=== PATIENT | male | born 1990 | race Caucasian/White ===

== ENCOUNTER 2016-12-15 10:41 | Inpatient (IN) | payer SELFPAY ==
[~2016-12-15] VITALS: Ht 180.3 cm; Wt 98.7 kg
--- NOTE | 2016-12-15 10:55 | NUR ---
PT BIB [facility] WITH C/O GENERALIZED WEAKNESS AND NAUSEA R/T RECENT ETOH. PT IS AWAKE ACTING APPROPRIOATELY, FOLLOWING COMMANDS AND ANSWERING QUESTIONS. RESP EVEN AND UNLABORED, RA. NO C/O PAIN, SOB, CHEST PAIN, ABD PAIN. PT REPORTS NAUSEA HAS RESOLVED. PT NOTED TO HAVE ZAKI RED RASH UNDER AXILA, WITH MILD ITCHING. PT ALSO NOTED TO HAVE JAUNDICE TO ZAKI EYES.
--- NOTE | 2016-12-15 10:59 | NUR ---
DR BARRIOS AT BEDSIDE FOR MSE
--- NOTE | 2016-12-15 11:08 | NUR ---
RADIOLOGY AT BEDSIDE FOR PCXR
--- NOTE | 2016-12-15 11:19 | NUR ---
EMT AT BEDSIDE FOR EKG
--- NOTE | 2016-12-15 11:37 | NUR ---
MUSIC THERAPIST AT BEDSIDE FOR BLOOD DRAW
[2016-12-15 11:57] LABS: BASOPHIL % 0 % (0-2); RED CELL DISTRIBUTION WIDTH 15.7 % (11.5-14.5)
[2016-12-15 11:58] LABS: PLATELET COUNT 83 x10^3mcL (130-400)
[2016-12-15 12:06] LABS: ALKALINE PHOSPHATASE 244 U/L (46-116); ALT/SGPT 180 U/L (16-63); AST/SGOT 906 U/L (15-37); CALCIUM 7.6 mg/dL (8.5-10.1); CARBON DIOXIDE 33.9 mmol/L (21-32); CHLORIDE SERUM 69 mmol/L (98-107); CHOLESTEROL 135 mg/dL (<200); CREATININE SERUM 0.8 mg/dL (0.7-1.3); GFR1 > 60 mL/min; GLUCOSE SERUM 86 mg/dL (74-106); PHOSPHOROUS 3.1 mg/dL (2.5-4.9); TOTAL PROTEIN, SERUM 6.2 g/dL (6.4-8.2); URIC ACID 2.9 mg/dL (3.5-7.2)
[2016-12-15 12:16] LABS: ALBUMIN 1.9 g/dL (3.4-5.0)
[2016-12-15 12:17] LABS: BILIRUBIN TOTAL 12.03 mg/dL (0.20-1.00); HDL CHOLESTEROL 7 mg/dL (40-60); POTASSIUM SERUM 2.4 mmol/L (3.5-5.1); SODIUM SERUM 111 mmol/L (136-145)
--- NOTE | 2016-12-15 14:37 | NUR ---
PROVIDED REPORT TO YOUSIF TSAI FOR CONTINUITY OF CARE IN [facility]
[2016-12-15 14:42] LABS: microscopic required? YES; urine erythrocyte NEGATIVE (NEGATIVE)
--- NOTE | 2016-12-15 15:16 | NUR ---
RECEIVED PT FROM ED VIA [employer], CAME IN DUE TO WEAKNESS. AAOX4. C/O DIZZINESS. NO SOB NOTED. LUNG SOUNDS CTA. DENIES CHEST PAIN/PRESSURE, SINUS TACHYCARDIA ON THE MONITOR, HR AT 104. STATED THAT HE HAD DIARRHEAL EPISODES FOR 3 DAYS AND LAST BM WAS ON 12/14/16. STATED THAT HE VOMITED X2 TODAY, DENIES NAUSEA/VOMITING AT THIS TIME. JAUNDICE NOTED. C/O /10 BACK PAIN. GENERALIZED WEAKNESS. PADDED SIDE RAILS UP. CALL LIGHT ON REACH. HOB ELEVATED AT 30 DEG. ENDORSED
[2016-12-15 15:19] LABS: T3 TOTAL 0.56 ng/mL
[2016-12-15 15:20] LABS: MAGNESIUM 1.7 mg/dL (1.8-2.4)
[2016-12-15 15:21] LABS: CHOLESTEROL/HDL RATIO 18.9
[2016-12-15 15:22] LABS: FREE T4 1.11 ng/dL (0.76-1.46); FREE THYROXINE INDEX 2.1 ug/dL (1.4-4.5); T4(THYROXINE) 5.3 ug/dL (4.7-13.3)
[2016-12-15 15:46] VITALS: Ht 180.3 cm; Wt 98.7 kg
[2016-12-15 16:07] LABS: AMPHETAMINE QUAL UR NONE DETECTED (NEG <=1000)
--- NOTE | 2016-12-15 16:55 | NUR ---
PT C/O BACK PAIN 12/17. ENCOURAGED TO RELAX AND REPOSITION FOR COMFORT. PT WAS GIVEN MORPHINE IVP PRN. PT IS CURRENTLY LAYING IN BED WATCHING TV. CALL LIGHT WITHIN REACH. BED IN LOWEST POSITION. WILL CONTINUE TO MONITOR
[2016-12-15 18:14] VITALS: BP 104/56
--- NOTE | 2016-12-15 18:25 | NUR ---
PT C/O SEVERE ANXIETY. PROVIDED PT SUPPORT AND VENTILATION OF FEELINGS. ALSO PROVIDED PT TEACHING ABOUT POSSIBLE SIDE EFFECTS ASSOCIATED WITH ETOH WITHDRAWL. PT WAS GIVEN ATIVAN 2MG IVP PRN. CALL LIGHT WITHIN REACH. BED IN LOWEST POSITION. SEIZURE PRECAUTION IN PLACE, WITH PADDED SIDE RAILS. WILL ENDORSE TO ONCOMING SHIFT
--- NOTE | 2016-12-15 18:54 | NUR ---
PT STATES THAT THE MORPHINE HAD MINIMAL EFFECT. DR. ALVARES WAS NOTIFIED AND WAS ASKED TO EVALUATE DOSE OR ANOTHER MEDICATION. PT WILL REMAIN NPO ACCORDING TO DR. PINON. WILL HAVE U.S. GALLBLADDER WILL ENDORSE CARE TO ONCOMING NURSE
--- NOTE | 2016-12-15 20:00 | NUR ---
RECEIVED PT IN BED, ALERT AND ORIENTED. DENIES HEADACHE/DIZZINESS. RESP. EVEN AND UNLABORED. ON ROOM AIR, NO DISTRESS NOTED. AFEBRILE AND VITAL SIGNS STABLE. SR /ST WITH DEPRESSED T. WAVE ON THE MONITOR. DENIES CP OR PRESSURE. CALM AT THIS TIME. NO AGITATION NOTED. IVF, NS AT 100ML/HR, INTACT AND INFUSING VIA RAC, SITE CLEAR. ULTRASOUND OF THE GALL BLADDER DONE BY THE TECH AT THE BEDSIDE. VOIDING FREELY. CALL LIGHT WITHIN REACH. WILL CONTINUE TO MONITOR.
[2016-12-15 21:18] LABS: CALCIUM 7.3 mg/dL (8.5-10.1); CARBON DIOXIDE 26.4 mmol/L (21-32); CHLORIDE SERUM 73 mmol/L (98-107); CREATININE SERUM 0.8 mg/dL (0.7-1.3); GFR1 > 60 mL/min; GLUCOSE SERUM 68 mg/dL (74-106)
[2016-12-15 21:22] LABS: SODIUM SERUM 115 mmol/L (136-145)
[2016-12-15 21:25] LABS: POTASSIUM SERUM 2.7 mmol/L (3.5-5.1)
[2016-12-15 21:34] VITALS: BP 108/58
--- NOTE | 2016-12-15 21:45 | NUR ---
AGITATED AND RESTLESS, ATIVAN 2MG IV GIVEN ORDERED.WILL CONTINUE TO MONITOR.
--- NOTE | 2016-12-15 21:53 | NUR ---
RECEIVED K+ LEVEL LAB RESULT FROM [facility].( 2.7). DR LOU NOTIFIED. . STATES K-RIDER ALREADY GIVEN. WILL RECHECK LAB AT 0100. MAG RIDER INFUSING AT THIS TIME. WILL CONTINUE TO MONITOR.
[2016-12-16 06:13] VITALS: BP 117/60
--- NOTE | 2016-12-16 06:27 | NUR ---
AFEBRILE AND VITAL SIGNS STABLE. RESP. EVEN AND UNLABORED. NO DISTRESS NOTED. DUE MEDS GIVEN ORDERED, LEONARD. WELL. IVF INTACT AND INFUSING WELL, SITE CLEAR. PERIOD OF HALLUCINATIONS NOTED. NO AGITATION AT THIS TIME. NO SEIZURE ACTIVITY NOTED AT THIS TIME. WILL ENDORSE TO INCOMING NURSE.
[2016-12-16 06:49] LABS: BASOPHIL % 0 % (0-2); PLATELET COUNT 80 x10^3mcL (130-400); RED CELL DISTRIBUTION WIDTH 15.5 % (11.5-14.5)
--- NOTE | 2016-12-16 07:40 | NUR ---
PT AWAKE ALERT AND ORIENTED X4, ABLE [place] NEEDS KNOWN. C/O DIZZINES PT ENCOURAGED TO RISE SLOWLY FROM SITTING TO STANDING AND INSTRUCTED TO USE THE CALL LIGHT WHEN NEEDING ASSISTANCE, PT VERBALIZED UNDERSTANDING. TELE 10. LUNGS CTA DENIES SOB, RESPIRATIONS EVEN AND UNLABORED. BOWEL TONES ACTIVE IN ALL QUADS. IV TO THE RAC PATENT AND INFUSING. CALL LIGHT IN REACH, BED IN LOW POSITION SEIZURE PRECAUTIONS IN PLACE.
[2016-12-16 08:15] LABS: CALCIUM 7.7 mg/dL (8.5-10.1); CARBON DIOXIDE 28.5 mmol/L (21-32); CHLORIDE SERUM 77 mmol/L (98-107); CREATININE SERUM 0.9 mg/dL (0.7-1.3); GFR1 > 60 mL/min; GLUCOSE SERUM 78 mg/dL (74-106); MAGNESIUM 2.5 mg/dL (1.8-2.4); PHOSPHOROUS 1.7 mg/dL (2.5-4.9); POTASSIUM SERUM 3.5 mmol/L (3.5-5.1)
[2016-12-16 08:36] LABS: SODIUM SERUM 117 mmol/L (136-145)
[2016-12-16 09:18] VITALS: BP 113/69
--- NOTE | 2016-12-16 11:25 | NUR ---
ENTERED PTS ROOM, PT HAD TAKEN OFF TELE AND PULLED OUT IV SITE. PT PLACED IN ROOM CLOSER TO NURSES STATION, AND NEW IV STARTED TO RIGHT HAND.
--- NOTE | 2016-12-16 11:28 | NUR ---
PT RESTING IN BED NO SIGNS OF DISTRESS CALL LIGHT IN REACH WILL CONTINUE TO MONITOR.
[2016-12-16 13:47] VITALS: BP 120/72
--- NOTE | 2016-12-16 15:45 | NUR ---
PT RESTING IN BED NO SIGNS OF DISTRESS, EVEN UNLABORED RESPIRATIONS. CALL LIGHT WITHIN REACH, BED ALARM ON. WILL CONTINUE TO MONTIOR.
[2016-12-16 17:33] VITALS: BP 104/59
--- NOTE | 2016-12-16 21:39 | NUR ---
LATE ENTRY: 2000H - AWAKE, SLOW TO ANSWER, ABLE TO STATE NAME, , WHERE HE IS, PRESENT PRESIDENT. GENERALIZED WEAKNESS. NEEDED ASSISTANCE TO USE BEDSIDE COMMODE. PASSED WATERY STOOL. IVF OF NS AT 100ML/HR INFUSING TO RIGHT HAND. BREATHING EVEN AND UNLABORED ON ROOM AIR. SINUS TACHYCARDIC ON TELE. HOB KEPT ELEVATED 45 DEG. UPPER SIDE RAILS KEPT RAISED, BED IN LOWEST POSITION, CALL LIGHT WITHIN EASY REACH, PLACED BED ALARM ON.
[2016-12-16 21:49] VITALS: BP 94/53
--- NOTE | 2016-12-16 23:48 | NUR ---
STATED WAS HUNGRY. ASKED FOR TAYA CRACKERS AND SODA. PROVIDED. ON HIGH FOWLERS.
[2016-12-16 23:51] VITALS: BP 100/67
--- NOTE | 2016-12-17 00:31 | NUR ---
ASSISTED TO BEDSIDE COMMODE. VOIDED VERY DARK GILA COLORED URINE. ASSISTED BACK TO BED, PLACED BED ALARM ON. HOB KEPT ELEVATED 30 DEG. CALL LIGHT WITHIN EASY REACH.
--- NOTE | 2016-12-17 04:29 | NUR ---
PT PULLED OUT IV, REMOVED TELEMONITOR. RE-ORIENTED TO HOSPITAL ENVIRONMENT.
--- NOTE | 2016-12-17 04:31 | NUR ---
NEW IV INSERTED TO RIGHT AC, 20G. INSTRUCTED NOT TO PULL OUT IV.
[2016-12-17 05:36] VITALS: BP 107/56
--- NOTE | 2016-12-17 06:12 | NUR ---
REFUSED TO WEAR GOWN, BUT COVERING HIMSELF WITH BLANKETS. IVF TO RIGHT AC INFUSING WELL. NO INFILTRATION NOTED. IVF OF NS AT 100ML/HR. BREATHING EVEN AND UNLABORED ON ROOM AIR.
[2016-12-17 06:31] LABS: CALCIUM 7.8 mg/dL (8.5-10.1); CHLORIDE SERUM 88 mmol/L (98-107); CREATININE SERUM 0.8 mg/dL (0.7-1.3); GFR1 > 60 mL/min; GLUCOSE SERUM 78 mg/dL (74-106); MAGNESIUM 2.4 mg/dL (1.8-2.4); SODIUM SERUM 125 mmol/L (136-145)
[2016-12-17 06:43] LABS: BASOPHIL % 0 % (0-2); PLATELET COUNT 66 x10^3mcL (130-400); RED CELL DISTRIBUTION WIDTH 15.6 % (11.5-14.5)
--- NOTE | 2016-12-17 07:30 | NUR ---
PT RESTING IN BED A/O X4 CONFUSED GARBLED SPEECH AT TIMES, ABLE TO FOLLOW COMMANDS. TELE 10. UNSTEADY GAIT, BSC IN PLACE, NON SKID FOOT WEAR ON, BED ALARM ON, ROOM NEAR [facility] STATION, CALL LIGHT PLACED WITHIN REACH ALONG WITH URINIAL. PT ENCOURAGED TO CALL FOR HELP WHEN NEEDING ASSISTANCE. WILL CONTINUE TO MONITOR.
[2016-12-17 07:45] LABS: POTASSIUM SERUM 2.9 mmol/L (3.5-5.1)
[2016-12-17 10:00] VITALS: BP 118/75
--- NOTE | 2016-12-17 10:44 | NUR ---
PT RESTING IN BED NO SIGNS OF DISTRESS, CALL LIGHT IN REACH WILL CONTINUE TO MONITOR.
--- NOTE | 2016-12-17 12:36 | NUR ---
HEARD PTS BED ALARM GOING OFF, ENTERED PTS ROOM TO FIND HIM SITTING ON THE BEDSIDE COMMODE. WITH BLOOD/URINE ON THE FLOOR IN THE PTS BED AND IN THE BSC. PT WAS PLACED IN A SHOWER CHAIR IN THE SHOWER AND CLEANED UP. LINENS WERE CHANGED, IV SITE PATENT AND INTACT. DR CATES PAGED AND IN TO SEE PT INFORMED ABOUT LARGE AMOUNT OF BLOOD LOSS. PT PLACED BACK IN BED, NON SKID FOOTWEAR IN PLACE, BED ALARM ON. WILL CONTINUE TO MONITOR.
--- NOTE | 2016-12-17 13:45 | NUR ---
DR BOWSER IN TO SEE PT MADE AWARE OF PTS WORSENING TREMORS, AND INCREASING CONFUSION. DR INCREASED ATIVAN DOSE.
[2016-12-17 14:10] VITALS: BP 100/61
[2016-12-17 16:42] LABS: BASOPHIL % 0.3 % (0-2)
[2016-12-17 16:49] LABS: PLATELET COUNT 69 x10^3mcL (130-400)
--- NOTE | 2016-12-17 17:00 | NUR ---
DR PAGAN IN TO SEE PT EXPLAINED NEED FOR EGD AND POSSIBLE SE, PT VERBALIZED UDERSTANDING, LOC CONFIRMED PT IS AWAKE ALERT AND ORIENTED X4, ABLE TO FOLLOW COMMANDS, CONSENTS SIGNED AND IN THE CHART. IVF INITIATED PER ORDERS. PTS FIANCE AT BED SIDE WILL CONTINUE TO MONITOR.
[2016-12-17 17:40] VITALS: BP 92/52
[2016-12-17 17:40] LABS: ALKALINE PHOSPHATASE 191 U/L (46-116); ALT/SGPT 133 U/L (16-63); AST/SGOT 627 U/L (15-37); BILIRUBIN DIRECT 10.82 mg/dL (0.0-0.2)
[2016-12-17 17:59] LABS: ALBUMIN 1.8 g/dL (3.4-5.0)
--- NOTE | 2016-12-17 18:48 | NUR ---
PT OFF THE FLOOR IN GI LAB.
--- NOTE | 2016-12-17 19:44 | NUR ---
RECEIVED REPORT FROM NURSE MONTILLA OF GI LAB.
--- NOTE | 2016-12-17 20:02 | NUR ---
BACK FROM GI LAB. VITAL SIGNS TEMP 99F, RR 20/MIN, O2 SAT 99% ON ROOM AIR, BP 93/42, MAP 62. PAIN 10/10, PT CLUTCHING STOMACH IN PAIN. INFORMED DR. HARVEY OF BP, MAP AND PAIN LEVEL.
--- NOTE | 2016-12-17 20:07 | NUR ---
CAME UP FROM GI LAB WITH IV OF NS AT 80ML/HR. CHANGED IVF TO 0.9%NS WITH 40MEQ KCL AT 80ML/HR ORDERED. PLACED ON NA PHOSPHATE IVP AT 43.8ML/HR ORDERED. PT CAME UP FROM GI LAB WITH SANDOSTATIN DRIP AT 25ML/HR.
[2016-12-17 20:10] VITALS: BP 93/42
--- NOTE | 2016-12-17 20:38 | NUR ---
PT STATED COMFORTABLE AT THIS TIME. DENIES HAVING PAIN. FIANCEE IN ROOM.
--- NOTE | 2016-12-17 21:47 | NUR ---
PT ATTEMPTING TO PULL ON IV LINE, REMOVED TELEBOX. REMOVED GOWN. NEEDS VERY FREQUENT REMINDERS.
--- NOTE | 2016-12-17 21:48 | NUR ---
FLORIAN PLACED FOR SAFETY.
[2016-12-17 22:24] VITALS: BP 109/69
[2016-12-18 06:39] VITALS: BP 99/63
--- NOTE | 2016-12-18 06:48 | NUR ---
VALVE PIPE IRRIGATOR REPORTED TEMP 100.6F. COOLING MEASURES INITIATED. TEMP RECHECKED 99.6F
--- NOTE | 2016-12-18 06:49 | NUR ---
EYES CLOSED, BREATHING EVEN AND UNLABORED ON ROOM AIR. HOB KEPT ELEVATED 30 DEG. IVF OF NS WITH 40MEQ KCL INFUSING AT 80ML/HR, SANDOSTATIN DRIP AT 25ML/HR.
[2016-12-18 07:04] LABS: BASOPHIL % 0.5 % (0-2)
[2016-12-18 07:05] LABS: PLATELET COUNT 75 x10^3mcL (130-400); RED CELL DISTRIBUTION WIDTH 16.4 % (11.5-14.5)
[2016-12-18 07:15] LABS: CALCIUM 7.4 mg/dL (8.5-10.1); CARBON DIOXIDE 32.7 mmol/L (21-32); CHLORIDE SERUM 94 mmol/L (98-107); CREATININE SERUM 0.8 mg/dL (0.7-1.3); GFR1 > 60 mL/min; GLUCOSE SERUM 149 mg/dL (74-106); MAGNESIUM 2.2 mg/dL (1.8-2.4); POTASSIUM SERUM 3.6 mmol/L (3.5-5.1); SODIUM SERUM 129 mmol/L (136-145)
--- NOTE | 2016-12-18 08:00 | NUR ---
RECEIVED PATIENT WHO IS SLOW TO ANSWER AND IS VERY PALE. PATIENT HAS BEEN ON WITH HISTORY OF ETOH ABUSE ADN WITH NOETD HEPATITIS. [place] HAS BEEN IN [place] AND HAS PTSD AND INSOMIA WELL A BACK INJUR LEAVING HIM WITH CHRONIC BACK PAIN. PAITEN AHS SOEM HENRIETTA TO THE LOWER EXTREMITIES AND AHS BEEN TREATED FOR FUNGAL INFECTION TO THE FEET INDICATED. NO INFLAMATION THOUGH AT THIS TME. PATIENT AHS BEEN ON A RGULAR DIET AND ENCOURAGE INTAKE AND ANY NUTRITIONAL SUPPLIMENTS INDICAE.Rian POLLARDNAVA ESCAMILLA HAD A EGD AND NO ULCERS OR PYLORI OR ACTIVE BLEEDING NOTED. APTIENT AHS BEEN WITH GENERAL WEAKNESS AND UOT SAFE T O BE OOB AND HAS BEEN AT TIME PULLING AT LINES AND BEING CONFUSED. PATIENT HAS ANSWERED QUESTIONS AT THIS TIME APPROPRIATELY BUT HAS NOTED LOW SODIUM. AT 125, LOW H AD OF 8.9/25 AD IS RECEIVING MAGNESIUM, FOLIC ACID, AND B ONE INDICATED. PROTONIX IV GIVEN BID AND DNEIS ANY NAUSEA AT THIS TIME. NS WITH 40 OF K CONTINUED ORDERED. PATIENT HAS NO COMPLAINTS OF PAIN AT THIS TIME AND NOTE LOW BP. NO BP MEDICAITONS NOTED. VITALS AT THIS TIMEAT 99.6, 97, 18, 99/63, 95%.
--- NOTE | 2016-12-18 09:00 | NUR ---
SEEN BYDR ONOFRE AND STAFF AND PLAN OF CARE DISCUSSED. SEEN BY DR PAGAN AND AT THIS TIME NO PLANS FOR COLONOSCOPY FOR TODAY OR TOMORROW. WANTS THE PATIENT TO HEAL HIS LIVER FIRST AND FOREMOST. IT SEEMS TO BE HIS BIGGIST ISSUE AND HE WAS ADVISED BY THE GI, DR PAGAN HE WILL IF HE DOES NOT STOP HIS DRINKING.
[2016-12-18 09:34] VITALS: BP 90/40
--- NOTE | 2016-12-18 11:09 | NUR ---
SIGNIFICANT OTHER AT BEDSIDE AND PATIENT IS SLEEPING AT THIS TIME. PATIENT DOES NOT APPEAR IN ANY DISTRESS. PATIENT FATHER CALLED FOR UPDATE OF THE PATIENT AND WILL BE CALLING BACK AT 130 TODAY WHEN HE GETS OFF WORK TO SPEAK WITH THE PATIENT.
[2016-12-18 14:28] VITALS: BP 91/47
--- NOTE | 2016-12-18 15:00 | NUR ---
PATIENT WAS WALKING THE HALLWAY AND BECAME PALE AND LOOKED FAINT. STAFF OFFERED AND WHEELCHAIR AND BROUGHT BACK TO HIS ROOM AND WILL CONTINUE TO MONITOR.
[2016-12-18 17:34] VITALS: BP 102/57
--- NOTE | 2016-12-18 20:00 | NUR ---
PT A/A/O X3, SIGNIFICANT OTHER AT BEDSIDE. PT DENIES DIZZINESS AND HEADACHE. BREATH SOUNDS CLEAR. BREATHING EVEN AND UNLABORED ON ROOM AIR. DENIES CHEST PAIN AND PRESSURE. BOWEL SOUNDS ACTIVE. NO C/O N/V AND ABD PAIN. MILD REDNESS NOTED ON ZAKI ARMPITS. TRACE EDEMA NOTED ON BLE. IV INTACT ON THE RAC INFUSING WITH NS+40KCL AT 80 ML/HR. MADE PT COMFORTABLE. PLACED CALL LIGHT WITH IN REACH. WILL CONTINUE TO MONITOR.
[2016-12-18 21:42] VITALS: BP 123/82
--- NOTE | 2016-12-19 00:19 | NUR ---
SNAPPED IV LINE. IV SITE STILL INTACT ON THE RAC. INSTRUCTED THE PT NOT TO TOUCH THE IV SITE AND IV LINE AND TO CALL WHEN IN NEED. PT VERBALIZED UNDERSTADING. WILL CONTINUE TO MONITOR.
--- NOTE | 2016-12-19 05:10 | NUR ---
PT RESTING WITH EYES CLOSED. EASILY AROUSABLE WITH VERBAL STIMULI. IV INTACT AND INFUSING ORDERED. WILL ENDORSE TO THE AM NURSE ACCORDINGLY.
[2016-12-19 05:52] VITALS: BP 112/77
[2016-12-19 06:35] LABS: CALCIUM 7.6 mg/dL (8.5-10.1); CARBON DIOXIDE 31.4 mmol/L (21-32); CHLORIDE SERUM 99 mmol/L (98-107); CREATININE SERUM 0.7 mg/dL (0.7-1.3); GFR1 > 60 mL/min; GLUCOSE SERUM 110 mg/dL (74-106); MAGNESIUM 2.2 mg/dL (1.8-2.4); PHOSPHOROUS 1.8 mg/dL (2.5-4.9); POTASSIUM SERUM 3.6 mmol/L (3.5-5.1); SODIUM SERUM 134 mmol/L (136-145)
--- NOTE | 2016-12-19 07:40 | NUR ---
RECEIVED PT IN BED A/A/OX3 DENIES JORDAN, SLOW TO ANSWER. HX ETOH ABUSE. RESP EVEN AND UNLABORED WITH CLEAR BS BILAT. DENIES ANY SOB/CP/PRESSURE AT THIS TIME. NSR ON TELE HR 95. TRACE EDEMA TO BLE WITH NS +40MEQ AT 40ML/HR. ABD SOFT, NONTENDER WITH ACTIVE BS X4. DENIES ANY N/V AT THIS TIME. VOIDING FREELY. NOTED WITH SOME REDNESS TO ARMPIT, ABD AND TORSO ROTOR COIL TAPER. AMBULATORY WITH SUPERVISION WITH SLOW GAIT. COOPERATIVE WITH CARE. CALL LIGHT IN REACH NEEDS ATTENDED TO.
[2016-12-19 08:23] LABS: PLATELET COUNT 99 x10^3mcL (130-400); RED CELL DISTRIBUTION WIDTH 16.1 % (11.5-14.5)
[2016-12-19 08:37] VITALS: BP 95/57
--- NOTE | 2016-12-19 09:00 | NUR ---
MADE AWARE BY DR. PAGAN IV LEAKING, NOTED IV PULLED FROM TOP AND LEAKING. PT MADE IVF STOPPED AND PT MADE AWARE IV WILL BE REMOVED.
--- NOTE | 2016-12-19 09:30 | NUR ---
RETURNED TO ROOM TO REMOVE IV PT HAD REMOVED IV AND STATED HE PUT IN SHARPS CONTAINER. IV SITE NOTED WITH NOT BLEEDING JUST SOME IRRITATION TO SITE. MADE AWARE NEW IV WILL BE INSERTED.
--- NOTE | 2016-12-19 10:15 | NUR ---
PT HAS NO IV ACCESS WAS ACCIDENTALLY PULLED OUT. PT REQUESTED TO REINSERTION TO BE DONE LATER THIS AM. REFUSED AT THIS TIME. IVP PROTONIX HELD WILL GIVE ONCE ACCESS IS ESTABLISHED. WILL CONT TO MONITOR.
[2016-12-19 12:36] LABS: ATYPICAL LYMPH 1 %; BAND NEUTROPHIL 3 % (0-10); BASOPHIL 0 % (0-2); MONOCYTE 7 % (0-7); SEGMENTED NEUTROPHILS 73 % (37-75)
[2016-12-19 12:38] LABS: PLATELET MORPHOLOGY PLATELETS DECREASED; rbc morphology (normal/abnorm) ABNORMAL (NORMAL)
--- NOTE | 2016-12-19 14:00 | NUR ---
PT REFUSED IV REINSERTION STATING HE WILL BE GOING HOME TODAY.
[2016-12-19] MEDS ORDERED: PAX20 PO ×2 (14:13→14:37)
[2016-12-19] MEDS ORDERED: ELA10 PO ×2 (14:14→14:37)
[2016-12-19] MEDS ORDERED: BUS5 PO ×2 (14:15→14:37)
[2016-12-19] MEDS ORDERED: FOL1 PO ×2 (14:16→14:37)
[2016-12-19] MEDS ORDERED: THERAGRAN-M1 TA4 PO ×2 (14:16→14:36)
[2016-12-19] MEDS ORDERED: THI100 PO ×2 (14:16→14:37)
[2016-12-19] MEDS ORDERED: NORCO1 TA2 PO (14:25)
[2016-12-19] MEDS ORDERED: MEDDP PO ×2 (14:31→16:24)
[2016-12-19] MEDS ORDERED: ATI1 PO (14:40)
--- NOTE | 2016-12-19 15:25 | NUR ---
Initial Nutrition Assessment-Galen Araya 250T-B Dx: Weakness, hyponatremia, hypokalemia, alcoholic hepatitis PMHx: Alcohol Abuse, last drink last night, back pain s/p injury in [place],PTSD,Insomnia, PSHx:None Labs: (12/19) Na:134L, B, Ca:7.6L, Phos:1.8L,H/H:8.7/26L (12/17) Alb:1.8L, Total bili:14H, AST:627H,, ALT: 133H, (12/15) TH, HDL:7L, Meds: Folic acid, Magnesium oxide, Protonix, NS IV, Theragran, Vit B1, Zofran Diet:Regular PO Intake: (12/16) D:60% + snack, (12/18)B: 100%, L:80% Ht: 71in, 5'11" Wt: 217#,98.68kg BMI:30.3kg/m2 (obesity, class I) IBW: 172#, 78kg %IBW: 126% UBW:unable to obtain Age:26 y/o male Food Allergies:unable to obtain Skin:intact Khoi: 19 Edema:trace to BLE GI:active bowel sounds Last BM: 12/17 Pt admitted with hypokalemia, hyponatremia, alcoholic hepatitis and hyperbilirubinemia Per H&P. Per progress note 12/18, pt with acute anemia possibly secondary to possible GI bleed. EGD with findings of erosive gastritis. Pt is lethargic but states he is feeling much better than the previous days and that his tremors have decreased. Pt is agreeable to starting anti anxiety medication for PTSD. Per bed huddle this morning, pt will have [facility] consult and then can discharge. Attempted to visit pt twice and pt was having VA consult. Per RN note on 12/19, no N/V with last BM on 12/17. Problem with: N: No V:No D: No C:No Problems with: Chewing: No Swallowing: No Current appetite: Good Recent wt change:unable to obtain %wt change:N/A Vitamin/Supplement use:unable to obtain Special diet at home:unable to obtain; per admission assessment pt is homeless and lives in a hotel Physical activity:unable to obtain Education: unable to provide Estimated Nutritional Needs Based on ideal body weight 78 kg Energy: 1950-2340kcal/d (25-30kcal/kg for adult maintenance ) Protein: 62.4-78g/d (0.8-1g/kg for adult maintenance) Fluid:7399-5060 ml/d (1 ml/kcal) or per doctor Nutrition Diagnosis 1.Altered nutrition labs related to alcoholic hepatitis as evideced by Total bili:14H, AST:627H,, ALT: 133H. 2. Altered nutrition labs related to acute anemia secondary to GI bleed as evuidenced by Hgb: 8.7 and Hct:26L. Intervention 1.Recommend continue with Regular diet. Monitor/Evaluate Goal: PO intake at least 75% of estimated needs Monitor: PO intake, Labs, GI function F/U in 7 days as low risk:12/26
--- NOTE | 2016-12-19 15:28 | NUR ---
1.Recommend continue with Regular diet.
[2016-12-19 16:08] VITALS: BP 95/57
--- NOTE | 2016-12-19 17:00 | NUR ---
ASKED PT IF HE WOULD ALLOW PICTURES OF RASH, REFUSED AT THIS TIME.
[2016-12-19 17:13] VITALS: BP 134/79
--- NOTE | 2016-12-19 17:55 | NUR ---
PT/FRIEND PROVIDED WITH D/C HOME INSTRUCTIONS. GIVEN MEDICATION/PRESCRIPTION EDUCATION. PROVIDED WITH [facility] [employer] CONTACT INFO, AND F/U APPT INFO MADE AWARE IMPORTANCE OF F/U. PT/FRIEND VERBALIZED UNDERSTANDING OF INSTRUCTIONS. IV HAD BEEN OUT SINCE 10AM AND TELE WAS RETURN TO MONITOR. PT TAKEN TO LOBBY VIA WC ACCOMPANIED BY FRIEND WITH ALL PERSONAL BELONGINGS IN HAND FREE OF ANY APPARENT DISTRESS.
== END 2016-12-19 18:00 | disposition home or self-care (01) | DRG 432 ==
LOC: ED 10:41 → DU 13:59
PROVIDERS: Emergency Medicine; Family Medicine; Internal Medicine Gastroenterology; ADMIT Family Medicine
PROC: 0DB78ZX Excision of Stomach, Pylorus, Via Natural or Artificial Opening Endoscopic, Diagnostic (ICD-10-PCS; principal; 2016-12-17 18:30)
DX: K70.10 Alcoholic hepatitis without ascites (principal); N17.0 Acute kidney failure with tubular necrosis; G92 Toxic encephalopathy; K85.90 Acute pancreatitis without necrosis or infection, unspecified; K92.2 Gastrointestinal hemorrhage, unspecified; E87.1 Hypo-osmolality and hyponatremia; F10.239 Alcohol dependence with withdrawal, unspecified; K22.10 Ulcer of esophagus without bleeding; E87.6 Hypokalemia; T51.0X1A Toxic effect of ethanol, accidental (unintentional), initial encounter; F10.229 Alcohol dependence with intoxication, unspecified; Y90.6 Blood alcohol level of 120-199 mg/100 ml; Z88.0 Allergy status to penicillin; F43.10 Post-traumatic stress disorder, unspecified; F17.210 Nicotine dependence, cigarettes, uncomplicated; Z53.29 Procedure and treatment not carried out because of patient's decision for other reasons; D64.9 Anemia, unspecified
CPT/HCPCS: 43235; 83880; 84439; C9113; G0480; J1200; J1610; J2060; J2250; J2270; J2310; J2354; J3010; J3430; J3475; J3480; J3490; J7030; J7510; Q0092; Q9967